=== PATIENT | female | born 1945 | race Hispanic/Latino ===

== ENCOUNTER 2018-06-25 11:00 | Outpatient (RCR) | payer OTHER | END 2018-06-29 | LOC: PT 11:00 | PROVIDERS: ATTEND Otolaryngology | DX: H83.2X2 Labyrinthine dysfunction, left ear (principal) | CPT/HCPCS: 97112 ×4; 97162; G8990; G8991 ==

== ENCOUNTER 2018-07-11 09:57 | Outpatient (RCR) | payer OTHER | END 2018-07-29 | LOC: PT 09:57 | PROVIDERS: ATTEND Otolaryngology | DX: H83.2X2 Labyrinthine dysfunction, left ear (principal) ==